=== PATIENT | female | born 1950 | race Caucasian/White ===

== ENCOUNTER 2022-01-30 08:07 | Outpatient (CLI) | payer MEDICARE, OTHER, SELFPAY ==
--- OUTSIDE RECORDS SUMMARY | 2022-01-30 08:11 | XMS_ITS | Clinical Summary ---
:1950 Author Organization [place] Address [address] [place] [address] Care Team Providers Name Role Phone Darion Lindquist MD Primary Care Provider Allergies Active Allergy Reactions Severity Noted Date Comments Benzyl Alcohol Swelling, Rash Low 06/09/2018 Edetic Acid Swelling, Rash Low 06/09/2018 Glycerin Swelling, Rash Low 06/09/2018 Ketoconazole Hives Low 06/09/2018 Phenoxyethanol Swelling, Rash Low 06/09/2018 Polyethylene Glycol Swelling, Rash Low 06/09/2018 Terbinafine Hives Low 06/09/2018 Trolamine Salicylate Hives Low 06/09/2018 Medications Medication Sig Dispensed Refills Start Date End Date Status atorvastatin (LIPITOR) 0 05/16/2018 Active 20 MG tablet esomeprazole (NEXIUM) 20 Take 20 mg by 0 06/09/[address] capsule mouth lisinopril 0 04/01/2018 Active (PRINIVIL/ZESTRIL) 20 MG tablet metFORMIN (GLUCOPHAGE) 0 04/16/2018 Active 500 MG tablet nystatin (MYCOSTATIN) 0 03/11/2018 Active [id number] UNIT/GM external powder Family History Medical History Relation Comments Diabetes Father Heart Disease Father Prostate Cancer Father Diabetes Mother Heart Disease Mother Lung Cancer Mother Relation Status Comments Father Mother Social History Tobacco Use Types Packs/Day Years Used Date Smoking Tobacco: Never Smokeless Tobacco: Never Tobacco Cessation: Counseling Given: No Sex Assigned at Date Recorded Not on file Last Filed Vital Signs Vital Sign Reading Time Taken Comments Blood Pressure 130/80 07/24/2018 8:46 AM CDT Pulse 82 07/24/2018 8:46 AM CDT Temperature - - Respiratory Rate - - Oxygen Saturation 97% 07/24/2018 8:46 AM CDT Inhaled Oxygen Concentration - - Weight 119.7 kg (264 lb) 07/24/2018 8:46 AM CDT Per Pat ient Height 170.2 cm (5' 7) 07/24/2018 8:46 AM CDT Per Bonny ent Body Mass Index 41.35 07/24/2018 8:46 AM CDT Plan of Treatment Not on file Insurance Payer Benefit Plan / Subscriber ID Effective Phone Address T ype Group Dates MEDICARE MEDICARE [id number] 2015-Prese [phone] ATTN CLAI MS Medicare nt [address] [place] [address] COMMERCIAL GENERIC [id number] 2011-Prese [phone] [employer] COMMERCIAL [address] [place] [address] [address] (Home) [place] [address] Care Teams Material Cutter Relationship Specialty Start Date End Date Darion Lindquist MD PCP - General Family Practice 07/14/18 [facility] [address] [place] [address]
--- OUTSIDE RECORDS SUMMARY | 2022-01-30 08:11 | XMS_ITS | Encounter Summary ---
:1950 Author Organization [place] Address [address] [facility] [place] [address] Care Team Providers Name Role Phone Darion Lindquist MD Primary Care Provider Encounter Details Date Type Department Care Team Description 07/24/2018 Travel Social History Tobacco Use Types Packs/Day Years Used Date Smoking Tobacco: Never Smokeless Tobacco: Never Sex Assigned at Date Recorded Not on file documented as of this encounter Plan of Treatment Not on filedocumented as of this encounter Visit Diagnoses Not on filedocumented in this encounter Care Teams Sales Floor Associate Relationship Specialty Start Date End Date Darion Lindquist MD PCP - General Family Practice 07/14/18 [facility] [address] [place] [address] documented as of this encounter
--- OUTSIDE RECORDS SUMMARY | 2022-01-30 08:12 | XMS_ITS | Encounter Summary ---
:1950 Author Organization [place] Address [facility] [place] [address] Care Team Providers Name Role Phone Darion Lindquist MD Primary Care Provider Reason for Visit Reason Comments Hematuria Patient because of blood in Urine Encounter Details Date Type Department Care Team Description 07/24/2018 Office Visit [facility] Wally Rashid Hematu soto, unspecified type (Primary Dx); [facility] Mirela Valdovinos MD Prophylactic antibiotic [address] [place] [address] [place] [address] [phone] Social History Tobacco Use Types Packs/Day Years Used Date Smoking Tobacco: Never Smokeless Tobacco: Never Tobacco Cessation: Counseling Given: No Sex Assigned at Date Recorded Not on file documented as of this encounter Last Filed Vital Signs Vital Sign Reading [...] Mass Index 41.35 07/24/2018 8:46 AM CDT documented in this encounter Patient Instructions Patient InstructionsPraneeth Villarreal CMA - 07/24/2018 9:30 AM CDT AFTER YOUR CYSTOSCOPY ? ? You have just completed a cystoscopy, or cysto, which allowed your physician to learn more about your bladder (or to remove a stent placed after surgery). We suggest that you continue to avoid caffeine, fruit juice, and alcohol for the next 24 hours, however, you are encouraged to return to your normal activities. ? ? A few things that are considered normal after your cystoscopy: ? * small amount of bleeding (or spotting) that clears within the next 24 hours ? * slight burning sensation with urination ? * sensation of needing to void (urinate) more frequently ? * the feeling of air in your urine ? * mild discomfort that is relieved with Tylenol * bladder spasms ? ? ? Please contact our office promptly if you: ? * develop a fever above 101 degrees ? * are unable to urinate ? * develop bright red blood that does not stop ? * experience severe pain or swelling ? ? ? And of course, please contact our office with any concerns or questions [phone] ? documented in this encounter Progress Notes Wally Rashid MD - 07/24/2018 9:30 AM CDT [facility] Main Office: [address] [facility] [address] [place], [place] [address] CHIEF COMPLAINT: Hematuria HISTORY: I was asked by Dr. Darion Lindquist with [facility] to see this 67-year-old woman who presentswith hematuria.She says that she has occasionally seenblood on the tissue after wiping but not necessarily any gross hematuria. She did have a urinalysis performed in Dr. Lindqusit's office that showed Mi croscopic hematuria. She is otherwise asymptomatic.She reports no urinary urgency or frequency. No incontinence and no nocturia.She reports normal urinary stream.She has no family history of urologic malignancy. She has no smoking history. She had a CT scan performed at [facility] that showedbilateral renal cysts but otherwise no abnormalities. In light of this I recommended that she proceed with a cystoscopy today. PAST MEDICAL HISTORY: Past Medical History: Diagnosis Date ??? Goiter ??? Hernia, abdominal ??? Spider veins PAST SURGICAL HISTORY: Past Surgical History: Procedure Laterality Date ??? HERNIA REPAIR FAMILY HISTORY: Family History Problem Relation Age of Onset ??? Diabetes Mother ??? Heart Disease Mother ??? Lung Cancer Mother ??? Diabetes Father ??? Heart Disease Father ??? Prostate Cancer Father SOCIAL HISTORY: Social History Tobacco Use ??? Smoking status: Never Smoker ??? Smokeless tobacco: Never Used Substance Use Topics ??? Alcohol use: Not on file ALLERGIES: Allergies Allergen Reactions ??? Benzyl Alcohol Swelling and Rash ??? Edetic Acid Swelling and Rash ??? Glycerin Swelling and Rash ??? Ketoconazole Hives ??? Phenoxyethanol Swelling and Rash ??? Polyethylene Glycol Swelling and Rash ??? Terbinafine Hives ??? Trolamine Salicylate Hives MEDICATIONS: Current Outpatient Medications: ??? atorvastatin (LIPITOR) 20 MG tablet, , Disp: , Rfl: ??? lisinopril (PRINIVIL/ZESTRIL) 20 MG tablet, , Disp: , Rfl: ??? metFORMIN (GLUCOPHAGE) 500 MG tablet, , Disp: , Rfl: ??? esomeprazole (NEXIUM) [address] capsule, Take 20 mg by mouth, Disp: , Rfl: ??? nystatin (MYCOSTATIN) 160884 UNIT/GM external powder, , Disp: , Rfl: REVIEW OF SYSTEMS: Allergic/Immunologic: negative Constitutional Symptoms: negative Fever: none Weight loss: none Other: none Hematologic/Lymphatic: negative Integumentary: negative Breast: negative Hair: negative Skin: negative Skin: negative Eyes: negative Ears/Nose/Throat: negative Respiratory: negative Cardiovascular: negative Gastrointestinal: negative Genitourinary: negative Musculoskeletal: negative Neurologic: negative Psychiatric: negative Reproductive System: negative Endocrine: negative PHYSICAL EXAM: VS: HR: Data Unavailable BP: Data Unavailable WT: 0 lbs 0 oz HT: Data Unavailable General appearance: In NAD, conversant HEENT: normocephalic and atraumatic, anicteric sclera Lymph Nodes: not examined Cardiovascular: not examined Respiratory: normal, non-labored breathing Abdomen: soft, non-tender, and non-distended Back/Flank: not examined Peripheral Vascular/extremity: no peripheral edema Lymphatic: not examined Skin: Normal temperature, turgor, and texture. No rash Psychiatric: Appropriate affect. Alert and Oriented to person, place, and time Pelvic: External genitalia: normal Urethra: normal Vagina: normal vaginal mucosa Cystoscopy: I performed flexible cystoscopy today and the bladder was normal throughout.No tumor identified throughout the bladder. Each ureteral orifice in its normal anatomic location Laboratory Studies: dipstick urinalysis shows large blood today, sent for analysis Imaging Studies: a report of her CT scan from [facility] on July 18 reported no urinary tract calculi or bladder masses. She was reported to have small hypodense renal lesions bilaterally that were too small to characterize and thought to be benign cysts. CLINICAL IMPRESSION: Microscopic hematuria PLAN: Her CT scan at [facility] was negative for any concerning causes of hematuria and her cystoscopy was normal today. I recommended we send her urine sample today for cytology in order to complete her hematuria workup. Otherwise she was provided reassurance. If she encounters any urinary symptoms or any gross hematuria or worsening hematuria she should come back and see me in clinic at that time. Wally Rashid M.D. documented in this encounter Miscellaneous Notes Addendum Note - Praneeth Villarreal CMA - 07/24/2018 9:30 AM CDT Addended by: PRANEETH VILLARREAL on: 07/24/2018 09:28 AM Modules accepted: Orders documented in this encounter Plan of Treatment Not on filedocumented as of this encounter Procedures Procedure Name Priority Date/Time Associated Diagnosis Comme nts CYTOLOGY NON SENIOR ARCHITECT Routine 07/24/2018 9:16 AM Hematuria, Resul ts for this CDT unspecified type procedure a re in the results section. URINE MACROSCOPIC Routine 07/24/2018 8:44 AM Hematuria, Resu lts for this ONLY CDT unspecified type procedure a re in the results section. documented in this encounter Results Cytology non guard immigration (07/24/2018 9:16 AM CDT) Component Value Ref Test Analysis Performed At [facility] Range Method Time Signature Copath Report Patient Name: NELI CRUZ MR#: [id number] Specimen #: [id number] Collected: 07/24/2018 Received: 07/25/2018 Reported: 07/25/2018 14:06 Ordering Phy(s): WALLY RASHID For improved result formatting, select 'View Enhanced Report Format' under Linked Documents section. SPECIMEN/STAIN PROCESS: Urine, voided ? Pap-Cyto x 1 ---- CYTOLOGIC INTERPRETATION: Urine, voided: ?? Negative for High-Grade Urothelial Carcin reyes Crystals present. Specimen Adequacy: Satisfactory for evaluation but limited b y: ..scant urothelial cells present. I have personally reviewed all specimens and/or slides, incl uding the listed special stains, and used them with my medical judgement to determine or confirm the final diagnosis. Electronically signed out by: Devan Godfrey M.D. CLINICAL HISTORY: Hematuria. , GROSS: Urine, voided: ??Received 30 ml of yellow, clear fluid, proc essed as 1 Pap stained Autocyte.. MICROSCOPIC: A microscopic examination is performed. CPT Codes: A: 18308-VODRTBG COLLECTION SITE: Client: ??[facility] Location: ??UAURO (S) The technical component of this testing was completed at the [facility], with the professional compo nent performed at the [facility], [address] [place] [phone] ) Specimen (Source) Anatomical Collection Method Collection Time Re ceived Time Location / / Volume Laterality Cytologic 07/24/2018 9:16 07/25/2018 8 :52 material AM CDT AM CDT (specimen) Wally Rashid MD LAB - OPTIME CLINICAL SPECIM EN Performing Organization Address City/State/ZIP Code Phon e Number COPATH (ABNORMAL) UA without Microscopic [[id number]] (07/24/2018 8:44 AM CDT) [facility] Method Time Signature Color Urine Yellow 07/24/2018 [facility] 8:47 AM CDT [facility] Appearance Urine Clear 07/24/2018 [place] 8:47 AM CDT [facility] Glucose Urine Negative NEG^Negat 07/24/2018 [place] giuseppe mg/dL 8:47 AM CDT [facility] Bilirubin Urine Negative NEG^Negat 07/24/2018 [place] 8:47 AM CDT [facility] Ketones Urine Negative NEG^Negat 07/24/2018 [place] mg/dL 8:47 AM CDT [facility] Specific [place] 1.020 1.003 - 07/24/2018 [place] Urine 1.035 8:47 AM CDT [facility] Blood Urine Large (A) NEG^Negat 07/24/2018 [place] giuseppe 8:47 AM CDT [facility] pH Urine 5.5 5.0 - 7.0 07/24/2018 [facility] pH 8:47 AM CDT [facility] Protein Albumin Negative NEG^Negat 07/24/2018 [facility] Urine giuseppe mg/dL 8:47 AM CDT [facility] Urobilinogen 0.2 0.2 - 1.0 07/24/2018 [facility] Urine EU/dL 8:47 AM CDT [facility] Nitrite Urine Negative NEG^Negat 07/24/2018 [facility] giuseppe 8:47 AM CDT [facility] Leukocyte Negative NEG^Negat 07/24/2018 [facility] Esterase Urine giuseppe 8:47 AM CDT [facility] Source Midstream 07/24/2018 [facility] Urine 8:45 AM CDT [facility] Specimen (Source) Anatomical Collection Method Collection Time Re ceived Time Location / / Volume Laterality Examination of 07/24/2018 8:44 07/24/2018 8:45 midstream urine AM CDT AM CDT specimen (procedure) Wally Rashid MD LAB - URINE ORDERABLES Performing Organization Address City/State/ZIP Code Phon e Number [facility] [address] [place] [id number] [address] documented in this encounter Visit Diagnoses Diagnosis Hematuria, unspecified type - Primary Prophylactic antibiotic Encounter for long-term (current) use of antibiotics documented in this encounter Care Teams Edge Inker Heels Relationship Specialty Start Date End Date Darion Lindquist MD PCP - General Family Practice 07/14/18 [facility] [address] [place] [address] documented as of this encounter
--- OUTSIDE RECORDS SUMMARY | 2022-01-30 08:12 | XMS_ITS | Clinical Summary ---
:1950 Author Organization [employer] [facility] [place] [address] Care Team Providers Name Role Phone Nam Lindquist MD Primary Care Provider Tahir Majano Unavailable Unavailable Allergies Active Allergy Reactions Severity Noted Date Comments Benzyl Alcohol Rash, Edema Low 06/09/2018 Ycmxmzdhmmjvyo-Fkrvakvagrm-H Rash, Edema Low 06/09/2018 Edetic Acid Rash, Edema Low 06/09/2018 Glycerin Rash, Edema Low 06/09/2018 Glyceryl Stearate Se Rash, Edema Low 06/09/2018 Ketoconazole Hives Low 06/09/2018 Phenoxyethanol Rash, Edema Low 06/09/2018 Polyethylene Glycol 3350 Rash, Edema Low 06/09/2018 Terbinafine Hives Low 06/09/2018 Trolamine Salicylate Hives Low 06/09/2018 Medications Medication Sig Dispensed Refills Start Date End Date Status esomeprazole (NEXIUM) 20 Take 1 capsule 30 capsule 0 9 Active mg capsuleIndications: by mouth once Gastroesophageal reflux daily before a disease, esophagitis meal. presence not specified atorvastatin (LIPITOR) 0 05/16/2018 Active 20 mg tablet fluconazole (DIFLUCAN) 0 03/11/2018 Active 150 mg tablet lisinopril (PRINIVIL; 0 04/01/2018 Active ZESTRIL) 20 mg tablet metFORMIN (GLUCOPHAGE) 0 04/16/2018 Active 500 mg tablet nystatin powder 0 03/11/2018 Act giuseppe (MYCOSTATIN) powder Active Problems Not on file Social History Tobacco Use Types Packs/Day Years Used Date Never Smoker Smokeless Tobacco: Never Used Sex Assigned at Date Recorded Not on file Obstetrics History Last Filed Vital Signs Vital Sign Reading Time Taken Comments Blood Pressure 118/48 06/09/2018 2:30 PM CDT Pulse 61 06/09/2018 2:30 PM CDT Temperature 36.6 ??C (97.8 ??F) 06/09/2018 11:00 AM CDT Respiratory Rate 16 06/09/2018 11:00 AM CDT Oxygen Saturation 94% 06/09/2018 2:30 PM CDT Inhaled Oxygen Concentration - - Weight 122 kg (269 lb) 06/09/2018 11:00 AM CDT Height 170.2 cm (5' 7) 06/09/2018 11:00 AM CDT Body Mass Index 42.13 06/09/2018 11:00 AM CDT Plan of Treatment Health Maintenance Due Date Last Done Comments COVID-19 vaccine series (#1) 03/13/1951 Tdap 1961 Depression screening for age 12+ 1962 BMI (ht and wt on same day) for age 0709/10/1968 18+ Hepatitis C screening for age 18-79 1968 Tetanus booster 1970 Colonoscopy through age 75 09/11/1995 Mammogram for age 45-75 09/11/1995 Zoster (shingles) series for age 50+ 2000 (1 of 2) Lipids for age 45-75 08/21/2010 08/21/2005, 03/25/2002, 03/25/2002 DEXA/DXA scan for age 65+ 09/11/2015 Pneumococcal series for age 65+ ( - 09/11/2015 PCV) Influenza for age 65+ 11/02/2021 Results Not on filefrom Last 3 Months Insurance Payer Benefit Plan / Subscriber ID Effective Phone Address T ype Group Dates MEDICARE MEDICARE [id number] 2015-Prese [address] [place] [address] COMMERCIAL COMMERCIAL [id number] 2011-Prese [phone] [place] [address] BLUE CROSS BLUE CROSS OF [id number] Effective for [address] [address] [place] [address] [address] [place] [address] Dave Cruz Personal/Family Spouse [address] (Home) [place] [phone] (Work) Care Teams Window Cutter Relationship Specialty Start Date End Date Nam Lindquist MD PCP - General Family Practice 06/09/[address] [place] [address] Tahir Majano PA 06/09/18
[2022-01-30 14:06] LABS: Chloride* 109 mmol/L (96-114)
[2022-01-30 14:07] LABS: Potassium* 4.3 mmol/L (3.6-5.1); Sodium* 140 mmol/L (135-149)
[2022-01-30 14:09] LABS: Carbon Dioxide* 23 mmol/L (20-32); Cholesterol* 133 mg/dL (90-199); Creatinine* 0.6 mg/dL (0.5-1.5); Estimated Glomerular Filt Rate 96 ml/min
[2022-01-30 14:10] LABS: Blood Urea Nitrogen* 21 mg/dL (7-30); Calcium* 9.5 mg/dL (8.4-10.6); Glucose* 150 mg/dL (60-115); HDL Cholesterol* 45 mg/dL (>=50); LDL Cholesterol Calculated 73 mg/dL (<100); Triglycerides* 73 mg/dL (40-149)
[2022-01-30 14:57] LABS: TSH With Reflex to FT4* 0.257 uIU/mL (0.270-4.200)
[2022-01-30 15:49] LABS: Free T4 Free Thyroxine* 1.03 ng/dL (0.70-1.85)
== END 2022-01-30 08:08 | disposition home or self-care (01) ==
PROVIDERS: PCP Family Medicine; Visit Provider Family Medicine
DX: I10 Essential (primary) hypertension (principal); E78.5 Hyperlipidemia, unspecified; E13.9 Other specified diabetes mellitus without complications; Z13.29 Encounter for screening for other suspected endocrine disorder
CPT/HCPCS: 80048; 80061; 84439; 84443

== ENCOUNTER 2022-04-20 13:24 | Outpatient (CLI) | payer MEDICARE, OTHER, SELFPAY | END 2022-04-20 13:25 | disposition home or self-care (01) | LOC: OP CLINIC 13:27 | PROVIDERS: PCP Family Medicine; Visit Provider Internal Medicine | DX: Z12.11 Encounter for screening for malignant neoplasm of colon (principal); K63.5 Polyp of colon; K57.30 Diverticulosis of large intestine without perforation or abscess without bleeding | CPT/HCPCS: 45380; 88305; J2250; J3010 ==

== ENCOUNTER 2022-12-25 13:29 | Outpatient (CLI) | payer MEDICARE, OTHER, SELFPAY | END 2022-12-25 13:30 | disposition home or self-care (01) | PROVIDERS: PCP Family Medicine; Visit Provider Family Medicine | DX: I10 Essential (primary) hypertension (principal); E78.5 Hyperlipidemia, unspecified; E11.9 Type 2 diabetes mellitus without complications; E21.3 Hyperparathyroidism, unspecified; R63.4 Abnormal weight loss; Z13.29 Encounter for screening for other suspected endocrine disorder | CPT/HCPCS: 80048; 80061; 83036; 84443 ==

== ENCOUNTER 2023-05-03 11:35 | Outpatient (CLI) | payer MEDICARE, OTHER, SELFPAY | END 2023-05-03 11:36 | disposition home or self-care (01) | LOC: LKVREF 11:37 | PROVIDERS: PCP Family Medicine; Visit Provider Family Medicine | DX: Z01.818 Encounter for other preprocedural examination (principal); H02.403 Unspecified ptosis of bilateral eyelids; I10 Essential (primary) hypertension | CPT/HCPCS: 80048 ==

== ENCOUNTER 2024-01-10 18:35 | Emergency (ER) | payer MEDICARE, OTHER, SELFPAY ==
[2024-01-10 18:45] VITALS: BP 177/101; PULSE 108; RESP 20; TEMP 36.8; O2SAT 96; BMI 36.6
[2024-01-10 19:11] LABS: Appearance Urine Clear (Clear); Bilirubin Urine Negative (Negative); Blood Urine 2+ (Negative); Color Urine Yellow (Yellow); Glucose Urine Negative (Negative); Ketones Urine Negative (Negative); Leukocyte Esterase Urine 1+ (Negative); Nitrite Urine Negative (Negative); Protein Urine Negative (Negative); Specific Gravity Urine 1.025 (1.000-1.030); Urobilinogen Urine 0.2 (0.2-1.0); pH Urine 5.5 (5.0-8.5)
[2024-01-10 19:33] LABS: Bacteria Urine Few; Squamous Epithelial Cell Urine Few (None-Few)
--- OUTSIDE RECORDS SUMMARY | 2024-01-10 19:46 | XMS_ITS | Clinical Summary ---
Author Organization [facility] [facility] Address [place], [place] [address] Care Team Providers Care President Ceo & Founder Name Role Phone Nam Lindquist MD Primary Care Provider [phone] Tahir Majano Unavailable Unavailable Allergies Active Allergy Reactions Criticality Noted Date Comments Benzyl Alcohol Rash,Edema Low 06/09/2018 Wjvlgsxgyohiai-Mzczlmrphcs-Q Rash,Edema Low 019 Edetic Acid Rash,Edema Low 06/09/2018 Glycerin Rash,Edema Low 06/09/2018 Glyceryl Stearate Se Rash,Edema Low 06/09/2018 Ketoconazole Hives Low 06/09/2018 Phenoxyethanol Rash,Edema Low 06/09/2018 Polyethylene Glycol 3350 Rash,Edema Low 06/09/2018 Terbinafine Hives Low 06/09/2018 Trolamine Salicylate Hives Low 06/09/2018 Medications Medication Sig Dispensed Refills Start Date End Date Status esomeprazole (NEXIUM) 20 mg capsuleIndications:Ga stroesophageal reflux disease, esophagitis presence not specified Take 1 capsule by mouth once daily before a meal. 30 capsule 06/09/2018 Active atorvastatin (LIPITOR) 20 mg tablet 05/16/2018 Active fluconazole (DIFLUCAN) 150 mg tablet 03/11/2018 Active lisinopril (PRINIVIL; ZESTRIL) 20 mg tablet 04/01/2018 Act giuseppe metFORMIN (GLUCOPHAGE) 500 mg tablet 04/16/2018 Active nystatin powder (MYCOSTATIN) powder 03/11/2018 Activ e Social History Tobacco Use Types Packs/Day Years Used Date Smoking Tobacco: Never Smokeless Tobacco: Never Sex and Gender Information Value Date Recorded Sex Assigned at Not on file Gender Identity Not on file Sexual Orientation Not on file Obstetrics History Last Filed Vital Signs Vital Sign Reading Time Taken Comments Blood Pressure 118/48 06/09/2018 2:30 PM CDT Pulse 61 06/09/2018 2:30 PM CDT Temperature 36.6 ??C (97.8 ??F) 06/09/2018 11:00 AM C DT Respiratory Rate 16 06/09/2018 11:00 AM CDT Oxygen Saturation 94% 06/09/2018 2:30 PM CDT Inhaled Oxygen Concentration - - Weight 122 kg (269 lb) 06/09/2018 11:00 AM CDT Height 170.2 cm (5' 7) 06/09/2018 11:00 AM CDT Body Mass Index 42.13 06/09/2018 11:00 AM CDT Plan of Treatment Health Maintenance Due Date Last Done Comments Tdap 1961 Depression screening for age 12+ 1962 BMI (ht and wt on same day) for age 18+ 1968 Hepatitis C screening for age 18-79 1968 Tetanus booster 1970 Colonoscopy through age 75 09/11/1995 Mammogram for age 45-75 09/11/1995 Zoster (shingles) series for age 50+ (1 of 2) 2000 Lipids for age 45-75 08/21/2010 08/21/2005, 03/25/2002, 03/25/2002 DEXA/DXA scan for age 65+ 09/11/2015 Pneumococcal series for age 65+ (1 of 1 - PCV) 09/11/2015 COVID-19 vaccine series (2023- season) 2023 Influenza for age 65+ 11/03/2023 Procedures Procedure Name Priority Date/Time Associated Diagnosis Comments LIPID PANEL Timed 08/21/2005 2:40 PM CDT from Last 3 Months or Most Recently Relevant to Health Maintenance Results * (ABNORMAL) LIPID PANEL (08/21/2005 2:40 PM CDT) CHOLESTEROL,TOTAL 235(H) 110 - 199 mg/dL [facility] TRIGLYCERIDES 170(H) <150 mg/dL [facility] HDL CHOLESTEROL 52 >40 mg/dL [facility] CHOL/HDL RATIO 4.52(H) <4.51 [facility] LDL CHOLESTEROL 149(H) <131 mg/dL [facility] PATIENT STATUS Fasting [facility] 08/21/2005 2:40 PM CDT 08/21/2005 2:19 PM CDT Tahir RAY CHEMISTRY [facility] [address] [place] [address] from Last 3 Months or Most Recently Relevant to Health Maintenance Care Teams President Ceo & Founder Relationship Specialty Start Date End Date Nam Lindquist MD PCP - General Family Practice 06/09/18 Tahir Majano PA 06/09/18
--- OUTSIDE RECORDS SUMMARY | 2024-01-10 19:46 | XMS_ITS | Referral Summary ---
Author Organization [place] Address [address] [place] [address] Care Team Providers Care Customer Support Specialist Name Role Phone Darion Lindquist MD Primary Care Provider [phone] Allergies Active Allergy Reactions Criticality Noted Date Comments Benzyl Alcohol Swelling,Rash Low 06/09/2018 Edetic Acid Swelling,Rash Low 06/09/2018 Glycerin Swelling,Rash Low 06/09/2018 Ketoconazole Hives Low 06/09/2018 Phenoxyethanol Swelling,Rash Low 06/09/2018 Polyethylene Glycol Swelling,Rash Low 06/09/2018 Terbinafine Hives Low 06/09/2018 Trolamine Salicylate Hives Low 06/09/2018 Medications atorvastatin (LIPITOR) 20 MG tablet 05/16/2018 Active esomeprazole (NEXIUM) [address] capsule Take 20 mg by mouth 06/09/2018 Active lisinopril (PRINIVIL/ZESTRI L) 20 MG tablet 04/01/2018 Act giuseppe metFORMIN (GLUCOPHAGE) 500 MG tablet 04/16/2018 Active nystatin (MYCOSTATIN) 644836 UNIT/GM external powder 03/11/2018 Act giuseppe Social History Tobacco Use Types Packs/Day Years Used Date Smoking Tobacco: Never Smokeless Tobacco: Never Tobacco Cessation:Counseling Given: No PHQ-2 Answer Date Recorded PHQ-2 Score 0 07/24/2018 Comments Unknown Sex and Gender Information Value Date Recorded Sex Assigned at Not on file Legal Sex Female 10:15 AM CDT Gender Identity Not on file Sexual Orientation Not on file Last Filed Vital Signs Vital Sign Reading Time Taken Comments Blood Pressure 130/80 07/24/2018 8:46 AM CDT Pulse 82 07/24/2018 8:46 AM CDT Temperature - - Respiratory Rate - - Oxygen Saturation 97% 07/24/2018 8:46 AM CDT Inhaled Oxygen Concentration - - Weight 119.7 kg (264 lb) 07/24/2018 8:46 AM CDT Per Patient Height 170.2 cm (5' 7) 07/24/2018 8:46 AM CDT P er Patient Body Mass Index 41.35 07/24/2018 8:46 AM CDT Plan of Treatment Not on file Insurance MEDICARE COMMERCIAL Care Teams Customer Support Specialist Relationship Specialty Start Date End Date Darion Lindquist MD PCP - General Family Practice 07/14/18
--- OUTSIDE RECORDS SUMMARY | 2024-01-10 19:46 | XMS_ITS | Clinical Summary ---
Author Organization [facility] Address [address] [place] [id number] Care Team Providers Care Nitrogen Operator Name Role Phone Darion Lindquist MD Primary Care Provider [phone] Allergies Active Allergy Reactions Criticality Noted Date [...] 500 MG tablet 04/16/2018 Active nystatin (MYCOSTATIN) 615896 UNIT/GM external powder 03/11/2018 Act giuseppe Family History Medical History Relation Comments Diabetes [...] on file Insurance MEDICARE COMM[employer]CIAL Care Teams Nitrogen Operator Relationship Specialty Start Date End Date Darion Lindquist MD PCP - General Family Practice 07/14/18
--- NOTE | 2024-01-10 19:51 | ED_ITS ---
HPI - Female Genitourinary General Date Seen: 01/10/24 Chief complaint: Urogenital Problems, Female Stated complaint: Possible UTI Time Seen by Provider: 01/10/24 19:32 Source: patient Mode of arrival: ambulatory Limitations: no limitations History of Present Illness HPI Narrative: Patient is a 73-year-old female presenting to emergency department for concern of a UTI. She states for the past couple days she has been having polyuria and dysuria. Has not noticed any blood or discharge. Has had UTIs before and this feels similar. Denies any abdominal pain. Has not had any fevers or chills. Denies lightheadedness, dizziness, weakness, numbness, chest pain, shortness of breath, diarrhea, constipation. She states she feels asymptomatic other than the polyuria and dysuria. No other concerns noted Related Data Home Medications ?Medication ?Instructions ?Recorded ?Confirmed aspirin 81 mg tablet,delayed 81 mg PO QDAY 12/17/21 08/27/23 release calcium carbonate 600 mg PO QDAY 12/17/21 08/27/23 cholecalciferol (vitamin D3) 10 10 mcg PO QDAY 12/17/21 08/27/23 mcg (400 unit) capsule omega-3 fatty acids-fish oil 360 1 cap PO QDAY 12/17/21 08/27/23 mg-1,200 mg capsule (Fish Oil) Vitamin E PO 01/30/22 08/27/23 vitamin D3 25 mcg-vitamin K2 20 cap PO 08/27/23 08/27/23 mcg-olive leaf extract 250 mg capsule Previous Rx's ?Medication ?Instructions ?Recorded atorvastatin 20 mg tablet 20 mg PO .hs #90 tabs 12/25/22 lisinopril 20 mg tablet 20 mg PO .hs #90 tabs 12/25/22 metformin 500 mg tablet See Rx Instructions PO .ud #270 12/25/22 tabs tramadol 50 mg tablet 50 mg PO Q6H PRN pain #30 tabs 08/27/23 glipizide 10 mg tablet, extended 10 mg PO QDAY #90 tabs 01/08/24 release 24 hr trazodone 50 mg tablet See Rx Instructions .Route 01/08/24 .COMPLEX #90 tabs Allergies Allergy/AdvReac Type Severity Reaction Status Date / Time benzyl alcohol Allergy Mild Rash Verified 08/27/23 12:38 edetic acid Allergy Mild Rash Verified 08/27/23 12:38 glycerin Allergy Mild Rash Verified 08/27/23 12:38 ketoconazole Allergy Mild Hives Verified 08/27/23 12:38 polyethylene glycol Allergy Mild Rash Verified 08/27/23 12:38 terbinafine Allergy Mild Hives Verified 08/27/23 12:38 trolamine salicylate Allergy Mild Rash Verified 08/27/23 12:38 vitamin E (d-alpha Allergy Mild Rash Verified 08/27/23 12:38 tocopherol) UNWASHED BLOOD Allergy Severe blood Uncoded 08/27/23 12:38 reaction cyclomethicone Allergy Mild Rash Uncoded 08/27/23 12:38 Glyceryl stearate Allergy Mild Rash Uncoded 08/27/23 12:38 phenoxyethanol Allergy Mild Rash Uncoded 08/27/23 12:38 Review of Systems Status of ROS: Reports: 10 or more systems reviewed and unremarkable except as noted in History and below PFSH PFS Medical History 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] (ICD-10) Contact dermatitis ?L25.9 - Unspecified contact dermatitis, unspecified cause (ICD-10) Hyperparathyroidism ?E21.3 - Hyperparathyroidism, unspecified (ICD-10) Surgical History S/P bilateral cataract extraction ?Z98.41 - Cataract extraction status, right eye (ICD-10) ?Z98.42 - Cataract extraction status, left eye (ICD-10) Status post repair of ventral hernia ?Z98.890 - Other specified postprocedural states (ICD-10) ?Z87.19 - Personal history of other diseases of the digestive system (ICD-10) Status post cholecystectomy ?Z90.49 - Acquired absence of other specified parts of digestive tract (ICD- 10) History of parathyroid surgery ?Z98.890 - Other specified postprocedural states (ICD-10) History of hysterectomy ?Z90.710 - Acquired absence of both cervix and uterus (ICD-10) Family History Other Diabetes Social History What is your current living situation?: I presently have a place to live Problems where you live: no known problems In the past 12 months, utilities in danger of being shut off: no In past 12 months, lack of transportation kept you from medical appts, meetings, work, or getting things needed for daily living: no In the past 12 mos, have been you worried that your food would run out before you had money to buy more?: never true In the past 12 mos, the food you bought just didn't last and you didn't have money to buy more?: never true Smoking Status: Never smoker How often does anyone, including family, friends and others, physically hurt you : never How often does anyone, including family, friends and others, insult or talk down to you: never How often does anyone, including family, friends and others, threaten you with harm: never How often does anyone, including family, friends and others, scream or curse at you: never Little interest or pleasure in doing things: not at all Feeling down, depressed, or hopeless: not at all Exam Narrative: Exam Narrative: Const: Well-nourished, Well-developed, in no distress Eyes: PERRL, no conjunctival injection, and symmetrical lids HENT: Atraumatic external nose and ears. Moist mucous membranes. GI: Nontender/Nondistended, No rebound or guarding. MSK:Extremities w/o deformity, Normal Active ROM Skin: Warm, Dry. No rashes or lesions. Neuro: Normal Muscle tone, No focal neurological deficits. Psych: Awake, Alert, & Oriented x3. Appropriate mood and affect. Const: Vital Signs, click to edit/add: Vital Signs - 24 hr 01/10/24 18:45 Temperature 98.3 F Pulse Rate [Pulse Oximeter] 108 H Respiratory Rate 20 Blood Pressure [Ri ght Upper Arm] 177/101 H Pulse Oximetry 96 Oxygen Delivery Me thod Room Air Course Vital Signs Vital signs: Initial Vital Signs Temperature 98.3 F 01/10/24 18:45 Temperature Source Temporal Artery Scan 01/10/24 18:45 Pulse Rate 108 H 01/10/24 18:45 Pulse Rhythm Regular 01/10/24 18:45 Respiratory Rate 20 01/10/24 18:45 Blood Pressure 177/101 H 01/10/24 18:45 Blood Pressure Mean 126 H 01/10/24 18:45 Blood Pressure Position Sitting 01/10/24 18:45 Pulse Oximetry 96 01/10/24 18:45 Oxygen Delivery Method Room Air 01/10/24 18:45 Vital Signs Temperature 98.3 F 01/10/24 18:45 Pulse Rate 108 H 01/10/24 18:45 Respiratory Rate 20 01/10/24 18:45 Blood Pressure 177/101 H 01/10/24 18:45 Pulse Oximetry 96 01/10/24 18:45 Oxygen Delivery Method Room Air 01/10/24 18:45 Temperature 98.3 F 01/10/24 18:45 Pulse Rate 108 H 01/10/24 18:45 Respiratory Rate 20 01/10/24 18:45 Blood Pressure 177/101 H 01/10/24 18:45 Pulse Oximetry 96 01/10/24 18:45 Oxygen Delivery Method Room Air 01/10/24 18:45 MDM - Female Genitourinary MDM Narrative Medical decision making narrative: Patient is a 73-year-old female presenting for concerns of a UTI. Pain is not radiating upper back or flanks an ascending UTI seems unlikely. As she is not having any flank pain nephrolithiasis seems unlikely. She otherwise is feeling well and I do not believe further lab work is necessary outside of urinalysis. She was slightly tachycardic when she arrived but she does states she was anxious because she really has to urinate again. She states she otherwise feels great and is agreeable to no other lab work. Urinalysis does show signs of UTI and I will start her on Keflex. She is agreeable to this plan. Will be prescribed through [facility] Lab Data Labs: Lab Results 01/10/24 Range/Units 18:41 Urine Color Yellow (Yellow) Urine Appearance Clear (Clear) Urine pH 5.5 (5.0-8.5) Ur Specific [place] 1.025 (1.000-1.030) Urine Protein Negative (Negative) Urine Glucose (UA) Negative (Negative) Urine Ketones Negative (Negative) Urine Blood 2+ A (Negative) Urine Nitrite Negative (Negative) Urine Bilirubin Negative (Negative) Urine Urobilinogen 0.2 (0.2-1.0) Ur Leukocyte Esterase 1+ A (Negative) Urine RBC 10-25 A (0-2) Urine WBC 10-25 A (0-5) Ur Squamous Epith Cells Few (None-Few) Urine Bacteria Few A (None) Discharge Plan Discharge Clinical Impression: Urinary tract infection Qualifiers: Urinary tract infection type: site unspecified Hematuria presence: with hematuria Qualified Code(s): N39.0 - Urinary tract infection, site not specified Instructions: Urinary Tract Infection in Women (DC) Additional 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 Return to emergency department for new or worsening symptoms. Prescriptions: No Action aspirin 81 mg tablet,delayed release (DR/EC) 81 mg PO QDAY cholecalciferol (vitamin D3) 10 mcg (400 unit) capsule 10 mcg PO QDAY calcium carbonate 600 mg calcium (1,500 mg) tablet 600 mg PO QDAY omega-3 fatty acids-fish oil [Fish Oil] 360-1,200 mg capsule 1 cap PO QDAY atorvastatin 20 mg tablet 20 mg PO .hs Qty: 90 3RF lisinopril 20 mg tablet 20 mg PO .hs Qty: 90 3RF metformin 500 mg tablet See Rx Instructions PO .ud Qty: 270 3RF Rx Instructions: 500 mg q.a.m. and a 1000 mg Q supper orally UD; Vitamin E PO vit D3-vit K2-olive leaf ext 25 mcg-20 mcg- 250 mg capsule PO tramadol 50 mg tablet 50 mg PO Q6H PRN (Reason: pain) Qty: 30 1RF glipizide 10 mg tablet extended release 24hr 10 mg PO QDAY Qty: 90 0RF trazodone 50 mg tablet See Rx Instructions .ROUTE .COMPLEX Qty: 90 0RF Dose Instruction: TAKE 1 TABLET AT BEDTIME Rx Instructions: TAKE 1 TABLET AT BEDTIME Follow Up/Referrals: Nam Lindquist MD [Primary Care Provider] - Stand Alone Forms: [facility] Info Instructions
== END 2024-01-10 20:00 | disposition home or self-care (01) ==
PROVIDERS: Emergency Provider Student in an Organized Health Care Education/Training Program; PCP Family Medicine
DX: N39.0 Urinary tract infection, site not specified (principal)
CPT/HCPCS: 81001; 87086; 87186; 99282; 99283

== ENCOUNTER 2024-03-10 09:12 | Outpatient (CLI) | payer MEDICARE, OTHER, SELFPAY | END 2024-03-10 09:13 | disposition home or self-care (01) | PROVIDERS: PCP Family Medicine; Visit Provider Family Medicine | DX: E78.2 Mixed hyperlipidemia (principal); I10 Essential (primary) hypertension | CPT/HCPCS: 80048; 80061 ==

== ENCOUNTER 2024-06-10 13:18 | Outpatient (CLI) | payer MEDICARE, OTHER, SELFPAY ==
--- NOTE | 2024-06-10 13:40 | CRLHL7_ITS ---
For Patients: As a result of the Cures Act, medical imaging exams and procedure reports are released immediately into your electronic medical record. You may view this report before your referring provider. If you have questions, please contact your health care provider. INDICATION: BILATERAL SCREENING MAMMOGRAM, ASYMPTOMATIC 73 Y/O FEMALE COMPARISON: 06/15/21, 04/07/20, 07/30/18 TECHNIQUE: CC and MLO views were obtained. These mammographic images have been obtained using full-field digital technique. These mammographic images were interpreted with the benefit of computer aided detection and tomosynthesis. BREAST COMPOSITION: The breasts are almost entirely fatty. FINDINGS: No suspicious findings. ASSESSMENT: BI-RADS 1 Negative RECOMMENDATION: Annual screening mammogram. A lay language report of this examination will be provided to the patient. COMPARISON: 06/15/21, 04/07/20, 07/30/18 TECHNIQUE: CC and MLO views were obtained. These mammographic images have been obtained using full-field digital technique. These mammographic images were interpreted with the benefit of computer aided detection and tomosynthesis. BREAST COMPOSITION: There are scattered areas of fibroglandular density. FINDINGS: No suspicious findings. ASSESSMENT: BI-RADS 1 Negative RECOMMENDATION: Annual screening mammogram. A lay language report of this examination will be provided to the patient. Dictated by: Bonifacio Hahn MD @ 06/11/2024 11:33:30 (Electronically Signed)
== END 2024-06-10 13:19 | disposition home or self-care (01) ==
LOC: MAMMO 13:18
PROVIDERS: PCP Family Medicine; Visit Provider Family Medicine
DX: Z12.31 Encounter for screening mammogram for malignant neoplasm of breast (principal)
CPT/HCPCS: 77063; 77067

== ENCOUNTER 2025-02-02 09:13 | Outpatient (CLI) | payer MEDICARE, SELFPAY | END 2025-02-02 09:14 | disposition home or self-care (01) | PROVIDERS: PCP Family Medicine; Visit Provider Family Medicine | DX: E78.2 Mixed hyperlipidemia (principal); E13.9 Other specified diabetes mellitus without complications; Z13.21 Encounter for screening for nutritional disorder | CPT/HCPCS: 80048; 80061; 82607 ==